=== PATIENT | female | born 2000 | race Caucasian/White ===

== ENCOUNTER 2019-11-24 20:12 | Emergency (ER) | payer OTHER ==
[~2019-11-24] VITALS: Ht 160 cm; Wt 112.5 kg
[2019-11-24] MEDS ORDERED: PREN29TA4 PO (20:19)
[2019-11-24 20:57] LABS: BASO % 0.1 % (0.0-1.0); EOS # 0.1 10^3/uL (0.0-0.5); EOS % 1.2 % (0.0-3.0); HEMATOCRIT 39.8 % (36.0-47.0); HEMOGLOBIN 12.5 g/dl (12.0-15.5); LYMPH # 3.3 10^3/uL (1.5-5.0); LYMPH % 34.1 % (24.0-44.0); MEAN CORPUSCULAR HEMOGLOBIN 28.1 pg (27.0-33.0); MEAN CORPUSCULAR HGB CONC 31.4 g/dl (32.0-36.5); MEAN CORPUSCULAR VOLUME 89.4 fl (80.0-96.0); MONO # 0.7 10^3/uL (0.0-0.8); MONO % 6.9 % (0.0-5.0); NEUTROPHILS # 5.5 10^3/uL (1.5-8.5); NEUTROPHILS % 57.4 % (36.0-66.0); PLATELET COUNT, AUTOMATED 315 10^3/uL (150-450); RED BLOOD COUNT 4.45 10^6/uL (4.00-5.40); WHITE BLOOD COUNT 9.6 10^3/uL (4.0-10.0)
[2019-11-24 21:09] LABS: BLOOD UREA NITROGEN 15 MG/DL (7-18); CALCIUM LEVEL 9.4 MG/DL (8.5-10.1); CARBON DIOXIDE LEVEL 27 MEQ/L (21-32); CHLORIDE LEVEL 105 MEQ/L (98-107); CREATININE FOR GFR 0.78 MG/DL (0.55-1.30); GLOMERULAR FILTRATION RATE > 60.0 (>60); GLUCOSE, FASTING 96 MG/DL (70-100); SODIUM LEVEL 139 MEQ/L (136-145)
[2019-11-24 21:11] LABS: HCG, SERUM QUALITATIVE NEGATIVE (NEGATIVE)
--- NOTE | 2019-11-24 22:41 | REPVR ---
PROCEDURE INFORMATION: Exam: US Pelvis, Transvaginal Exam date and time: 11/24/2019 9:26 PM Age: 19 years old Clinical indication: Other: Heavy bleeding TECHNIQUE: Imaging protocol: Real-time transvaginal pelvic ultrasound with image documentation. Transvaginal imaging was used for better evaluation of the endometrium and adnexa. COMPARISON: No relevant prior studies available. FINDINGS: Uterus/cervix: Uterus measures 8 x 3.5 x 4.6 cm. Endometrial echo complex measures 3.9 mm. Right adnexa: Right ovary measures 2.9 x 2.5 x 2.3 cm. Normal blood flow. Left adnexa: Left ovary measures 2.4 x 2.2 x 1.6 cm. Normal blood flow. Free fluid: None. IMPRESSION: Normal examination. No evidence of torsion. No gestational sac demonstrated in the endometrial cavity. Electronically signed by: Bong Bolton On 11/24/2019 22:41:19 PM
[2019-11-24 22:59] VITALS: BP 145/81
[2019-11-24 23:10] LABS: CHLAMYDIA DNA AMPLIFICATION NEGATIVE (NEGATIVE); GC DNA AMPLIFICATION NEGATIVE (NEGATIVE)
== END 2019-11-24 23:00 | disposition home or self-care (01) ==
LOC: M ED 20:12
DX: N92.0 Excessive and frequent menstruation with regular cycle (principal)

== ENCOUNTER 2020-02-19 18:36 | Emergency (ER) | payer OTHER ==
[~2020-02-19] VITALS: Ht 157.5 cm; Wt 120.9 kg
[~2020-02-19 18:36] MED LIST: PREN29TA4 PO
[2020-02-19] MEDS ORDERED: NS 1,000 ML IV ONE (19:15)
[2020-02-19 19:37] LABS: BASO % 0.1 % (0.0-1.0); EOS # 0.1 10^3/uL (0.0-0.5); EOS % 1.2 % (0.0-3.0); HEMATOCRIT 40.9 % (36.0-47.0); HEMOGLOBIN 13.3 g/dl (12.0-15.5); LYMPH # 2.9 10^3/uL (1.5-5.0); LYMPH % 26.4 % (24.0-44.0); MEAN CORPUSCULAR HEMOGLOBIN 29.1 pg (27.0-33.0); MEAN CORPUSCULAR HGB CONC 32.5 g/dl (32.0-36.5); MEAN CORPUSCULAR VOLUME 89.5 fl (80.0-96.0); MONO # 0.8 10^3/uL (0.0-0.8); MONO % 7.1 % (0.0-5.0); NEUTROPHILS # 7.1 10^3/uL (1.5-8.5); NEUTROPHILS % 64.7 % (36.0-66.0); PLATELET COUNT, AUTOMATED 366 10^3/uL (150-450); RED BLOOD COUNT 4.57 10^6/uL (4.00-5.40)
[2020-02-19 19:45] LABS: APPEARANCE, URINE CLEAR (CLEAR); BACTERIA, URINE AUTO NEGATIVE (NEGATIVE); BILIRUBIN, URINE AUTO NEGATIVE (NEGATIVE); BLOOD, URINE BLOOD 3+ (NEGATIVE); COLOR, URINE YELLOW (YELLOW); GLUCOSE, URINE (UA) AUTO NEGATIVE (NEGATIVE); KETONE, URINE AUTO NEGATIVE (NEGATIVE); LEUKOCYTE ESTERASE, URINE AUTO NEGATIVE (NEGATIVE); NITRITE, URINE AUTO NEGATIVE (NEGATIVE); PROTEIN, URINE AUTO NEGATIVE (NEGATIVE); RBC, URINE AUTO TNTC /HPF (0-3); SPECIFIC GRAVITY URINE AUTO 1.028 (1.002-1.035); SQUAMOUS EPITHELIAL CELL UR AU 1 /HPF (0-6); UROBILINOGEN, URINE AUTO 0.2 mg/dL (0.0-2.0); WBC, URINE AUTO 0 /HPF (0-3)
--- NOTE | 2020-02-19 20:27 | REPVR ---
PROCEDURE INFORMATION: Exam: US First Trimester, Transabdominal and US , Transvaginal Exam date and time: 02/19/2020 8:04 PM Age: 20 years old Clinical indication: Lmp or gestational age (in weeks): 7w5d; Antepartum complications; Bleeding; ; Additional info: Vaginal bleeding TECHNIQUE: Imaging protocol: Real-time transabdominal obstetrical ultrasound of the maternal pelvis and a first trimester , less than 14 weeks 0 days, with image documentation. Transvaginal imaging was used for better evaluation of the fetus and adnexa. COMPARISON: No relevant prior studies available. FINDINGS: GESTATION: Gestation: No definitive intrauterine gestational sac is visualized. Ectopic cannot be excluded. Heart rate: N/A. Placenta: N/A. Amniotic fluid: N/A. Abdomen: No significant wall thickening of the bladder. Evaluation of the bladder is limited. BIOMETRY: Estimated gestational age: The estimated gestational age by LMP is 7 weeks 5 days. MATERNAL: Uterus: The uterus measures 9.3 x 4.3 x 5.1 cm. No uterine mass visualized. The endometrial stripe measures 1.1 cm in thickness. Cervix: Minimal fluid is identified within the endocervical canal. Right adnexa: The right ovary measures 3.8 x 2.8 x 2.4 cm. There is preservation of blood flow within the right ovary. Small follicles are identified within the right ovary. Left adnexa: The left ovary measures 3.4 x 2.1 x 2.9 cm. There is preservation of blood flow within the left ovary. Intraperitoneal: Trace free fluid within the cul-de-sac. IMPRESSION: 1. No definitive intrauterine gestational sac is visualized. Ectopic cannot be excluded. Correlation with serial hCG levels and follow-up ultrasonography are recommended. 2. Trace free fluid within the cul-de-sac. 3. Minimal fluid is identified within the endocervical canal. Electronically signed by: Jose Alfredo Mott On 02/19/2020 20:27:32 PM
[2020-02-19 20:59] VITALS: BP 171/86
== END 2020-02-19 21:09 | disposition home or self-care (01) ==
LOC: M ED 18:36
DX: O20.0 Threatened abortion (principal); Z3A.01 Less than 8 weeks gestation of pregnancy

== ENCOUNTER → 2020-02-22 | Outpatient (CLI) | payer OTHER | LOC: M LAB 11:54 | PROVIDERS: ATTEND Physician Assistant | DX: O46.90 Antepartum hemorrhage, unspecified, unspecified trimester (principal); Z3A.00 Weeks of gestation of pregnancy not specified ==

== ENCOUNTER → 2021-02-15 | Outpatient (CLI) | payer OTHER ==
--- NOTE | 2021-02-18 09:05 | ECHO ---
DATE OF PROCEDURE: 02/15/2021 Age: 21 Gender: Female Height: 63 inches Weight: 290 pounds Body surface area: 2.29 m2 PATIENT LOCATION: Outpatient. REFERRING PHYSICIAN: Rob Kohler M.D. INDICATION: Chest pain. MEASUREMENTS: 2D Measurements: RV 3.8 cm LV 3.6 cm Septum 1.0 cm Posterior wall 1.0 cm Aortic Root 2.9 cm LA 3.2 cm LVEF 75% Doppler Measurements: AV 1.19 m/s LVOT 0.9 m/s LVOT diameter 1.8 cm MV-E 97, A 64, E/A ratio 1.5 Early mitral deceleration time 140 msec E prime medial 12.7, A prime medial 10, E prime lateral 14.4 Average E/E prime ratio 7.2/PCWP 10.8 mmHg PV 0.8 m/s Pulmonary artery acceleration time 111 msec PASP 34 mmHg IVC 1.6 cm COMMENTS: Normal sinus rhythm without intraventricular conduction disturbance. Somewhat technically challenging study in light of the patients body habitus, but diagnostically useful information was still obtained. M-mode and two-dimensional echocardiography was performed with pulse, continuous wave, color flow, and tissue Doppler studies. Normal left ventricular size, wall thickness, and hyperkinetic wall motion. Normal left atrial size and Doppler assessment of LV diastolic function and estimated mean left atrial pressure. Right heart chamber sizes upper limits of normal with normal wall motion and Doppler sign of borderline to mild pulmonary hypertension. Normal IVC size and collapse against an elevated central venous pressure. Normal aortic dimensions. Normal appearing and functioning aortic valve. Normal appearing and functioning mitral valve. Normal appearing tricuspid valve with mild tricuspid insufficiency (physiologic). No apparent intracardiac mass. Very small anterior and posterior pericardial fluid spaces measuring no more than 2 mm. No sign of cardiac compression. MTDD
== END ==
LOC: M CARPUL 10:12
PROVIDERS: ATTEND Internal Medicine
DX: Z13.6 Encounter for screening for cardiovascular disorders (principal)